=== PATIENT | male | born 1995 | race Caucasian/White ===

== ENCOUNTER 2023-03-20 06:04 | Day surgery (SDC) | payer OTHER ==
[~2023-03-20] VITALS: Ht 177.8 cm; Wt 96.8 kg
[2023-03-20] VITALS (10 sets, daily range): BP systolic 114–144; BP diastolic 73–89; PULSE 66–100; RESP 9–16; TEMP 98.3; O2SAT 94–100
[~2023-03-20 06:04] MED LIST: ATOR10TA70 PO; famotidine 20mg tablet PO ONE; oxymetazoline 15 ML nasal spray NS ONE; ringers solution, lacted 1,000 ML IV SCH
[2023-03-20] MEDS ORDERED: cocaine 4% topical solution 4ml bottle ONE (06:55)
[2023-03-20] MEDS ORDERED: mupirocin 2% ointment 22GM ONE (06:56)
[2023-03-20] MEDS ORDERED: methylPREDNISolone acetate 80mg/ml inj**IM only ONE (06:56)
[2023-03-20] MEDS ORDERED: LIDOcaine 1% W/epiNEPHrine 1:100,000 20ml vial ONE (06:56)
[2023-03-20] MEDS ORDERED: oxymetazoline 15 ML nasal spray NS ONE ×2 (06:57→08:54)
[2023-03-20] MEDS ORDERED: gelatin sponge, absorbable (Gelfoam 100) sponge TP ONE (06:57)
[2023-03-20] MEDS ORDERED: midazolam 1 mg/ML 2ml injection ONE (08:01)
[2023-03-20] MEDS ORDERED: fentaNYL/PF 50MCG/1 ML 2ML syringe ONE (08:01)
[2023-03-20] MEDS ORDERED: propofol inj 20 ML IV ONE ×2 (08:02→08:42)
[2023-03-20] MEDS ORDERED: sevoflurane 250ml liquid IH ONE (08:04)
[2023-03-20] MEDS ORDERED: dexamethasone sod phosphate 10mg/ml inj ONE (08:04)
[2023-03-20] MEDS ORDERED: ondansetron/PF 4mg/2ml inj ONE (08:42)
[2023-03-20] MEDS ORDERED: rocuronium 10mg/ml inj IV ONE (08:42)
[2023-03-20] MEDS ORDERED: cocaine 4% topical solution 4ml bottle TP ONE (08:51)
[2023-03-20] MEDS ORDERED: LIDOcaine 1% w/EPI 1:100,000 30ml vial (MDV) IJ ONE (08:53)
[2023-03-20] MEDS ORDERED: mupirocin 2% nasal ointment 1gm UD NS ONE ×2 (08:55→10:17)
[2023-03-20] MEDS ORDERED: sugammadex 200mg/2ml injection IV ONE (09:22)
--- NOTE | 2023-03-20 09:24 | NUR ---
Received from OR via [facility], accompanied by Anesthesiologist LUIS and report given by Anesthesiologist. PT PRESENTS ON 7L VIA MASK. NO C/O PAIN, NAUSEA. NO S/S OF DISTRESS. 3 COTTONOIDS TO EACH NARE. NO SIGN OF BLEEDING AT THIS TIME. VSS. LR RUNNING THRU PIV. WILL CONTINUE TO ASSESS.
[2023-03-20] MEDS ORDERED: morphine 4 MG/ML inj SYRINge IV PRN (09:30)
[2023-03-20] MEDS ORDERED: meperidine/PF 25mg/ml syringe IV PRN ×3 (09:30)
[2023-03-20] MEDS ORDERED: ringers solution, lacted 1,000 ML IV SCH (09:30)
[2023-03-20] MEDS ORDERED: proCHLORperazine 10 MG/2 ml inj IV PRN (09:30)
[2023-03-20] MEDS ORDERED: ondansetron/PF 4mg/2ml inj IV PRN (09:30)
[2023-03-20] MEDS ORDERED: morphine 2 MG/ML inj. syringe IV PRN (09:30)
--- NOTE | 2023-03-20 10:00 | NUR ---
REMOVED 6 COTTONOIDS AND APPLIED GAUZE WITH NASAL DRESSING GRAHAM: PT TOLERATED WELL.
[2023-03-20] MEDS ORDERED: oxymetazoline 15 ML nasal spray NS PRN (10:05)
--- NOTE | 2023-03-20 10:54 | NUR ---
PT UP AND DRESSED, VSS, DENIES ANY PAIN, PIV D/CD- CANNULA INTACT, DISCUSSED HOME CARE FOR NASAL IRRIGATION AND MEDICATIONS, PT USED OCEAN SPRAY AND OINTMENT BEFORE LEAVING, ALL QUESTIONS ANSWERED, FRESH GAUZE PLACE UNDER NOSE, PT TAKEN WITH SUPPLIES AND BELONGINGS TO VEHICLE, TRANSPORTED BY [facility], PT TRANSFERRED INTO VEHICLE WITHOUT INCIDENT.
[2023-03-20] MEDS ORDERED: salt irrigation nasal spray 45 ML SPRAY NS SCH (11:00)
== END 2023-03-20 10:54 | disposition home or self-care (01) ==
LOC: PAS 06:04
PROVIDERS: ATTEND Otolaryngology
DX: J34.3 Hypertrophy of nasal turbinates (principal); J34.2 Deviated nasal septum; E78.5 Hyperlipidemia, unspecified; Z79.899 Other long term (current) drug therapy; Z88.8 Allergy status to other drugs, medicaments and biological substances; Z98.890 Other specified postprocedural states
CPT/HCPCS: 30140; 30520; 82948; 93005; A6402; J1040; J1100; J2175; J2250; J2405; J2704; J3010; J3490; J7030; J7120; Z7506; Z7508; Z7512; A4618; A6449; A7000